=== PATIENT | female | born 1995 | race Caucasian/White ===

== ENCOUNTER 2017-11-17 06:19 | Day surgery (SDC) | payer OTHER ==
[2017-11-06 10:52] VITALS: BMI 23.5
[2017-11-17] MEDS ORDERED: OXYMETAZOLINE 0.05% NASAL SOLUTION 15 ML BOTTLE NS ONE ×2 (07:27→08:42)
[2017-11-17] MEDS ORDERED: LIDOCAINE 1%/EPI 1:100000 (20 ML MULTI DOSE VIAL) ONE ×2 (07:27→08:21)
[2017-11-17] MEDS ORDERED: ROCURONIUM BROMIDE 50 MG/5 ML VIAL ONE ×2 (07:48→08:43)
[2017-11-17] MEDS ORDERED: fentaNYL CITRATE 250 MCG/5 ML VIAL ONE (07:48)
[2017-11-17] MEDS ORDERED: PROPOFOL 20 ML ONE ×2 (07:48→11:01)
[2017-11-17] MEDS ORDERED: MIDAZOLAM HCL 2 MG/2 ML SINGLE DOSE VIAL ONE (07:48)
[2017-11-17] MEDS ORDERED: DEXAMETHASONE SOD PHOSPHATE 4 MG/1 ML VIAL ONE (08:18)
[2017-11-17] MEDS ORDERED: ONDANSETRON 4 MG/2 ML VIAL ONE (08:18)
[2017-11-17] MEDS ORDERED: LIDOCAINE 1%/EPI 1:100000 (50 ML MULTI DOSE VIAL) INF ONE ×2 (08:42)
[2017-11-17] MEDS ORDERED: GLYCOPYRROLATE 0.2 MG/1 ML VIAL ONE (10:54)
[2017-11-17] MEDS ORDERED: NEOSTIGMINE METHYLSULFATE 0.5 MG/ML - 10 ML MDV ONE (10:54)
[2017-11-17] MEDS ORDERED: BACITRACIN 15 GM TUBE TOPICAL OINTMENT ONE (11:06)
[2017-11-17] MEDS ORDERED: BSS (NA/CA/MG/K) BALANCED SALT SOLUTION OPHTH SOLN 15 ML BOTTLE NR ONE ×2 (11:12)
[2017-11-17] MEDS ORDERED: BSS (NA/CA/MG/K) BALANCED SALT SOLUTION OPHTH SOLN 15 ML BOTTLE ONE (11:12)
[2017-11-17] MEDS ORDERED: BACITRACIN 15 GM TUBE TOPICAL OINTMENT TP ONE (11:13)
[2017-11-17] MEDS ORDERED: oxyCODONE HCL 5 MG TABLET PO PRN ×3 (11:35→11:42)
[2017-11-17] MEDS ORDERED: ONDANSETRON 4 MG/2 ML VIAL IVPUSH PRN (11:35)
[2017-11-17] MEDS ORDERED: ONDANSETRON 4 MG/2 ML VIAL IVPB PRN (11:42)
[2017-11-17] MEDS ORDERED: LACTATED RINGERS SOLUTION 1,000 ML IV SCH (11:45)
--- NOTE | 2017-11-17 11:51 | OP ---
Operative Note - Note: Operative Date: 11/17/17 Pre-Operative Diagnosis: nasal septal deformity Operation: septorhinoplasty Findings: above Post-Operative Diagnosis: Same as Pre-op Surgeon: Justo Gunter Anesthesia: General Specimens Removed: septal cartilage Estimated Blood Loss (mls): 10
[2017-11-17] MEDS ORDERED: FAMOTIDINE 20 MG/50 ML IVPB 20 MG/50 ML MG IVPB ONE (13:00)
[2017-11-17] MEDS ORDERED: FAMOTIDINE 20 MG PREMIXED IVPB IVPB ONE (13:00)
[2017-11-17] MEDS ORDERED: oxyCODONE HCL 5 MG TABLET ONE (14:34)
[2017-11-17 15:31] VITALS: BP 117/76; PULSE 84; TEMP 98
--- NOTE | 2017-11-18 09:37 | OP ---
DATE OF OPERATION: 11/17/2017 TITLE OF PROCEDURE: Septoplasty with rhinoplasty. ATTENDING SURGEON: Justo Gunter MD BASKET ASSEMBLER: There were no assistants. ANESTHESIA: General endotracheal anesthesia. ANESTHESIOLOGIST: Adams Andrade MD The patient was seen in the holding area, counseled on all risks, benefits, and alternatives to the procedure, understands and agrees to proceed. Sequential compression stockings and DEIN hose were applied preoperatively. A gram of Ancef was given preoperatively. PREOPERATIVE DIAGNOSIS: Deviated nasal septum and cosmetic nasal deformity. POSTOPERATIVE DIAGNOSIS: Deviated nasal septum and cosmetic nasal deformity. DESCRIPTION OF PROCEDURE: The patient was brought to the operating room, placed in a supine position. Position was carefully checked by surgical and anesthesia teams. Sequential compression stockings were applied. A gram of Ancef was given. She was prepped and draped in standard surgical fashion. A time-out was called. Patient, procedure, side and sites were verified. The nose was prepped with at total injection of 6 mL of 1% lidocaine with 1:100,000 epinephrine injected to the operative tissues preoperatively, and the nose was packed with Afrin-soaked pledgets. After prepping and draping and waiting 15 minutes for this to work, the pledgets were removed. At this point, prior to proceeding further, an additional 5 mL1% lidocaine with 1:100,000 epinephrine were injected into the nasal septum for the planned septoplasty. A trans-columellar incision was made with the central stair step. This was connected to bilateral rimming incisions through which the nasal tip was dissected. The nasal dorsum was then likewise dissected, exposing a large composite bony and cartilaginous dorsal hump. The anterior septal angle was identified, and submucoperichondrial planes were developed on the nasal septal cartilage. These were retracted from the septum bilaterally where the deviated portion of the septum was able to be visualized and submucosal resection was performed leaving a 1.5 m dorsal and caudal rim strut. The dorsal takedown of the septum was performed under direct visualization leaving still well over 1 cm of dorsal strut. A caudal septal trim was performed roughly 1.5 mm. The bony dorsum was rasped to meet the height of the cartilaginous dorsum until an even height was achieved by both visualization and palpation. At this point, pyriform aperture incisions were injected, a total of 3 mL of 1% lidocaine with 1:100,000 epinephrine and pyriform aperture tunnels were likewise injected with an additional 2 mL of 1% lidocaine with 1:100,000 epinephrine bilaterally. Incisions were made along the pyriform aperture. A Anderson elevator was used on the anterior surface. A 3-mm guarded osteotome was then used for bilateral lateral osteotomies with infracturing. This was completed with good midline result and narrowing of the dorsum. Fine-tune rasping was then performed with a 3 rasp on the dorsum until a smooth even contour was achieved. Attention was then directed towards the tip where cephalic trims were performed leaving an 8-mm rim strip bilaterally. Tip-defining sutures were placed with 5-0 Prolene suture. Interdomal mattress sutures were used to create the projection and shape of the tip. With the skin tailor-tacked, an excellent contour of the dorsum and tip was able to be appreciated. Closure was then performed of the skin with a series of interrupted 6-0 nylon sutures. Bilateral internal nasal septal splints were placed with a mattress 4-0 Prolene suture through the membranous septum. The rimming incisions were closed with a series of interrupted 5-0 chromic gut sutures. The nasal dorsum was affixed with a Abraham splint. The tip was pink and viable at the end of the procedure. It should be noted that a throat pack had been used throughout the entirety of the procedure, which was removed at the end of the procedure. The throat was entirely suctioned prior to extubation. The mustache dressing was applied. Patient was awoken from anesthesia, transferred to recovery without complications. Blaze [id number]
== END 2017-11-17 15:15 | disposition home or self-care (01) ==
LOC: FASU 06:19
PROVIDERS: ATTEND Plastic Surgery
PROC: 09QK0ZZ Repair Nasal Mucosa and Soft Tissue, Open Approach (ICD-10-PCS; 2017-11-17)
PROC: 09QM0ZZ Repair Nasal Septum, Open Approach (ICD-10-PCS; principal; 2017-11-17 08:46)
DX: J34.2 Deviated nasal septum (principal); M95.0 Acquired deformity of nose
CPT/HCPCS: 84703; 94760